=== PATIENT | male | born 1990 | race Caucasian/White ===

== ENCOUNTER 2017-01-13 18:24 | Emergency (ER) | payer OTHER, MEDICAID ==
[~2017-01-13] VITALS: Ht 170.2 cm; Wt 62.0 kg
[~2017-01-13 18:24] MED LIST: PERM5CRE TOPICAL; PRED50 PO
[2017-01-13 18:59] VITALS: BP 144/85; PULSE 92; RESP 20; O2SAT 99
[2017-01-13] MEDS ORDERED: ACETAMINOPHEN 325 MG TAB PO ONE (19:00)
[2017-01-13] MEDS ORDERED: TETANUS/DIPHTHERIA TOXOID ADULT 0.5 ML VIAL IM ONE (19:00)
[2017-01-13] MEDS ORDERED: SODIUM CHLORIDE 0.9% FLUSH 10 ML FLUSH IVF PRN (19:00)
[2017-01-13] MEDS ORDERED: LIDOCAINE 1%/EPINEPHrine 1:100,000 SOLN 20 ML VIAL INFIL ONE (19:00)
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
[2017-01-13 20:02] VITALS: O2SAT 98
[2017-01-13] MEDS ORDERED: CYCL1TAB29 PO (20:22)
[2017-01-13] MEDS ORDERED: NAPR500 PO (20:22)
== END 2017-01-13 20:40 | disposition home or self-care (01) ==
LOC: NEPC 18:24
DX: S01.01XA Laceration without foreign body of scalp, initial encounter (principal); S16.1XXA Strain of muscle, fascia and tendon at neck level, initial encounter; V49.40XA Driver injured in collision with unspecified motor vehicles in traffic accident, initial encounter; Y92.488 Other paved roadways as the place of occurrence of the external cause; Z23 Encounter for immunization
CPT/HCPCS: 12002; 70450; 72125; 90471; 90714

== ENCOUNTER 2017-01-20 19:44 | Emergency (ER) | payer MEDICAID ==
[~2017-01-20 19:44] MED LIST changes: +CYCL1TAB29 PO; +NAPR500 PO; -PERM5CRE TOPICAL; -PRED50 PO
[2017-01-20 19:46] VITALS: BP 126/75; PULSE 74; RESP 14; TEMP 99.4; O2SAT 97
--- NOTE | 2017-01-20 20:03 | PD ---
HPI Chief Complaint: Wound/Suture/Staple Re-Check Time Seen by Provider: 19:59 Travel History International Travel<30 days: No Contact w/Intl Traveler<30days: No Traveled to known affect area: No History of Present Illness HPI 26-year-old male presents to emergency department for staple removal. He had a laceration approximately one week ago. No complaints. PFSH Past Medical History Medical History: Denies Significant Hx Hx Anticoagulant Therapy: No Cardiovascular Problems: No Chemotherapy: No Cerebrovascular Accident: No Diabetes: No Respiratory: No Tetanus Vaccination: < 5 Years Past Surgical History Surgical History: No Previous Surgery Social History Alcohol Use: Yes Tobacco Use: Yes (6-8 CIGGS/DAY) Substance Use: Yes (mj/xanax occassionally) Allergies-Medications (Allergen,Severity, Reaction): Coded Allergies: No Known Allergies (Verified , 01/20/17) Reported Meds & Prescriptions Reported Meds & Active Scripts Active Naprosyn (Naproxen) 500 Mg Tab 500 Mg PO Q12HR PRN Flexeril (Cyclobenzaprine HCl) 10 Mg Tab 10 Mg PO Q8HR PRN Review of Systems Except as stated in HPI: all other systems reviewed are Neg Physical Exam Narrative GENERAL: This is a well-nourished, well-developed patient, in no apparent distress. SKIN: No rashes, ecchymoses or lesions. Warm and dry. Well-healed scalp laceration. Oak in place. HEAD: Atraumatic. Normocephalic. EYES: PERRL, EOMI, no discharge or injection. No scleral icterus. EARS: Clear NOSE: Nasal turbinates appear normal. THROAT: Mucosa pink and moist. Airway patent. NECK: Trachea midline. supple, moves head freely. LUNGS: Clear to auscultation. CV: Regular in rhythm. ABDOMEN: Soft nontender. EXT: No clubbing cyanosis or edema. Data Data Last Documented VS Vital Signs Date Time Temp Pulse Resp B/P Pulse Ox O2 Delivery O2 Flow Rate FiO2 01/20/17 19:46 99.4 74 14 126/75 97 Room Air MDM Medical Decision Making Medical Screen Exam Complete: Yes Emergency Medical Condition: Yes Medical Record Reviewed: Yes Differential Diagnosis Differential diagnosis: Healing laceration, wound infection, staple removal, Narrative Course Oak removed without incidence Diagnosis Primary Impression: Removal of staple Additional Impression: Encounter for staple removal Patient Instructions: General Instructions Additional Instructions: Rest. Elevation. Tylenol and Advil for pain. Daily wound care with soap, water, Neosporin. Return to the ER if any problems. Med/Other Pt SpecificInfo: Wound Care Disposition: 01 DISCHARGE HOME Condition: Stable Vick Dave January 20, 2017 20:03
== END 2017-01-20 20:13 | disposition home or self-care (01) ==
LOC: NEPK 19:44
DX: Z48.02 Encounter for removal of sutures (principal)
CPT/HCPCS: 99281

== ENCOUNTER 2017-03-24 19:09 | Emergency (ER) | payer MEDICAID ==
[~2017-03-24] VITALS: Ht 160 cm; Wt 61.3 kg
[2017-03-24 19:13] VITALS: BP 117/76; PULSE 85; RESP 16; TEMP 100.1; O2SAT 99
--- NOTE | 2017-03-24 19:24 | PD ---
Physical Exam Date Seen by Provider: Mar 24, 2017 Time Seen by Provider: 19:22 Narrative 26 yo male here for evaluation of cold like symptoms. Going on for 1 day. Cough , runny nose, sore throat. No chest pain. Productive cough. No sick contacts. loss of appetite. Vitals are stable. Awaiting bed placement. Data Data Last Documented VS Vital Signs Date Time Temp Pulse Resp B/P Pulse Ox O2 Delivery O2 Flow Rate FiO2 03/24/17 19:13 100.1 85 16 117/76 99 Room Air [facility] Medical Record Reviewed: Yes Supervised Visit with ANAND: No Scripts No Active Prescriptions or Reported Meds Hubert Amos Mar 24, 2017 19:24
[2017-03-24] MEDS ORDERED: PENI500T PO (19:35)
--- NOTE | 2017-03-24 19:38 | PD ---
HPI Chief Complaint: ENT Complaint Time Seen by Provider: 19:36 Travel History International Travel<30 days: No Contact w/Intl Traveler<30days: No Traveled to known affect area: No History of Present Illness HPI 26-year-old male presents emergency Department with a one-to two-day history of headache, sore throat, cough, congestion, subjective fever and chills , and general malaise. He has had some nausea but no vomiting. No abdominal pain or diarrhea. No dysuria or frequency. He denies any significant myalgias or arthralgias. PFSH Past Medical History Medical History: Denies Significant Hx Hx Anticoagulant Therapy: No Cardiovascular Problems: No Chemotherapy: No Cerebrovascular Accident: No Diabetes: No Respiratory: No Tetanus Vaccination: < 5 Years Past Surgical History Surgical History: No Previous Surgery Social History Alcohol Use: Yes Tobacco Use: Yes Substance Use: No Allergies-Medications (Allergen,Severity, Reaction): Coded Allergies: No Known Allergies (Verified , 03/24/17) Reported Meds & Prescriptions Reported Meds & Active Scripts Active Penicillin V Potassium 500 Mg Tab 500 Mg PO Q12HR Review of Systems Except as stated in HPI: all other systems reviewed are Neg Physical Exam Narrative GENERAL: Well-developed, well-nourished in no acute distress. Nontoxic appearing. HEAD: Normocephalic, atraumatic. EYES: Pupils equal round and reactive. Extraocular motions intact. No scleral icterus. No injection or drainage. ENT: TMs clear without erythema. The external auditory canals clear. Nose: clear . Posterior pharynx is pink and moist. No tonsillar edema or exudate. Uvula midline. Airway patent. NECK: Trachea midline.Supple, nontender, moves head freely. No central bony tenderness or spasm. CARDIOVASCULAR: Regular rate and rhythm without murmurs, gallops, or rubs. RESPIRATORY: Clear to auscultation. Breath sounds equal bilaterally. No wheezes , rales, or rhonchi. GASTROINTESTINAL: Abdomen soft, non-tender, nondistended. No hepato-splenomegaly , or palpable masses. No guarding. EXTREMITIES: No clubbing, cyanosis, or edema. No joint tenderness, effusion, or edema noted. BACK: Nontender without deformity or crepitance. No flank tenderness. Data Data Last Documented VS Vital Signs Date Time Temp Pulse Resp B/P Pulse Ox O2 Delivery O2 Flow Rate FiO2 7/12/17 19:13 100.1 85 16 117/76 99 Room Air MDM Medical Decision Making Medical Screen Exam Complete: Yes Emergency Medical Condition: Yes Medical Record Reviewed: Yes Differential Diagnosis MDM: High Differential diagnoses: Strep throat, viral pharyngitis, URI Narrative Course This is URI Diagnosis Primary Impression: URI (upper respiratory infection) Qualified Code: J06.9 - Upper respiratory tract infection, unspecified type Patient Instructions: General Instructions Departure Forms: Tests/Procedures, Work Release Special Instructions: No work 2 days Additional Instructions: Rest. Force fluids. Saltwater gargles. Tylenol and Advil. Chloraseptic [place] Cepastat lozenge. Amoxicillin. Follow-up with a primary care doctor in one week. Return to the ER if any problems. Med/Other Pt SpecificInfo: Prescription(s) given Scripts Penicillin V Potassium 500 Mg [id number] Mg PO Q12HR #20 TAB Prov:Сергей Zelaya MD 03/24/17 Disposition: 01 DISCHARGE HOME Condition: Stable Vick Dave Mar 24, 2017 19:38
== END 2017-03-24 20:24 | disposition home or self-care (01) ==
LOC: NEPK 19:09
DX: J06.9 Acute upper respiratory infection, unspecified (principal); R51 Headache; R53.81 Other malaise; R11.0 Nausea; Z72.0 Tobacco use
CPT/HCPCS: 99283